=== PATIENT | female | born 1940 | race Caucasian/White ===

== ENCOUNTER → 2018-04-11 | Outpatient (CLI) | payer MEDICARE | END | disposition home or self-care (01) | LOC: RAD 15:52 | DX: J98.4 Other disorders of lung (principal); I10 Essential (primary) hypertension; M54.9 Dorsalgia, unspecified; Z87.891 Personal history of nicotine dependence ==

== ENCOUNTER 2018-04-23 16:34 | Emergency (ER) | payer MEDICARE ==
[~2018-04-23] VITALS: Ht 152.4 cm; Wt 57.6 kg
--- NOTE | ~2018-04-23 | EKG ---
[place], [place] ELECTROCARDIOGRAM REPORT NAME: RHETT FRANCO UNIT #: [id number] ROOM: DOCTOR: MONSE DRAFT REPORT BIRTHDATE: [birth year] [facility] Test Date: 2018-04-23 Test Time: 17:47:29 Pat Name: RHETT FRANCO Department: Room: Gender: F Rippler: : 1940 Requested By: HANY RUFF Order Number: [id number] Reading MD: Kal Marie MD Measurements Intervals [place] Rate: 102 P: 54 [place]: 158 QRS: 33 QRSD: 86 T: 33 QT: 345 QTc: 450 Interpretive Statements Sinus tachycardia Ventricular premature complex Electronically Signed On 04-24-2018 6:46:13 PST by Kal Marie MD CM:EKGRPT:ELECTROCARDIOGRAM REPORT [id number] HANY HAJI DRAFT REPORT HANY RUFF DO
[2018-04-23 17:41] LABS: HEMATOCRIT 41.8 % (37.0-47.0); HEMOGLOBIN 13.9 g/dl (12.0-16.0); MEAN CELL VOLUME 87.8 fl (81.0-99.0); MEAN CORPUSCULAR HGB 29.2 pg (27.0-31.0); MEAN CORPUSCULAR HGB CONC 33.3 g/dl (33.0-37.0); MEAN PLATELET VOLUME 9.3 fl (9.6-12.3); PLATELET COUNT AUTOMATED 285 10*3/uL (130-400); RED BLOOD COUNT 4.76 10*6/uL (4.10-5.10); RED CELL DISTRI WIDTH 12.3 % (0-14.5)
[2018-04-23 18:00] LABS: ALBUMIN 3.9 gm/dl (3.1-4.5); ALKALINE PHOSPHATASE 80 U/L (45-117); BUN 14 mg/dl (7-24); CHLORIDE 106 mmol/L (98-107); CREATININE 0.76 mg/dL (0.55-1.02); LIPASE 160 U/L (73-393); POTASSIUM 3.8 mmol/L (3.5-5.1); SGOT/AST 15 IU/L (3-35); SGPT/ALT 27 U/L (12-78); SODIUM 139 mmol/L (136-145); TOTAL PROTEIN 7.6 gm/dL (6.4-8.2)
[2018-04-23 18:01] LABS: ACT PARTIAL THROMBO TIME 26.1 SECONDS (20.8-31.5); INTERNATIONAL NORM RATIO 1.1 (2.0-3.5); TROPONIN I < 0.015 ng/ml (<0.045)
[2018-04-23 18:08] LABS: PLATELET SUFFICIENCY NORMAL (NORMAL); TOTAL CELLS COUNTED 100 #CELLS
[2018-04-23] MEDS ORDERED: DOXYCYCLINE100 M3 PO (18:50)
== END 2018-04-23 18:54 | disposition home or self-care (01) ==
LOC: ED 16:34
PROVIDERS: Emergency Medicine
DX: J20.9 Acute bronchitis, unspecified (principal); R79.1 Abnormal coagulation profile; Z91.040 Latex allergy status

== ENCOUNTER → 2020-05-26 | Outpatient (CLI) | payer MEDICARE ==
[~2020-05-26] MED LIST: DOXYCYCLINE100 M3 PO
== END | disposition home or self-care (01) ==
LOC: RAD 12:52
PROVIDERS: ATTEND Internal Medicine
DX: J44.9 Chronic obstructive pulmonary disease, unspecified (principal); R91.8 Other nonspecific abnormal finding of lung field; R05 Cough; M85.88 Other specified disorders of bone density and structure, other site

== ENCOUNTER 2020-12-04 14:59 | Inpatient (IN) | payer MEDICARE ==
[~2020-12-04] VITALS: Ht 152.4 cm; Wt 57.0 kg
[2020-12-04] VITALS (22 sets, daily range): BP systolic 94–147; BP diastolic 45–75
[2020-12-04 15:26] LABS: HEMATOCRIT 36.6 % (37.0-47.0); MEAN CELL VOLUME 85.1 fl (81.0-99.0); MEAN CORPUSCULAR HGB 27.4 pg (27.0-31.0); MEAN CORPUSCULAR HGB CONC 32.2 g/dl (33.0-37.0); PLATELET COUNT AUTOMATED 352 10*3/uL (130-400); RED CELL DISTRI WIDTH 13.3 % (0-14.5); WHITE BLOOD COUNT 15.4 10*3/uL (4.8-10.8)
[2020-12-04 15:42] LABS: BASOPHILS 1 % (0-1); TOTAL CELLS COUNTED 100 #CELLS
[2020-12-04 15:43] LABS: BURR CELLS FEW; PLATELET SUFFICIENCY NORMAL (NORMAL)
[2020-12-04 15:45] LABS: ALBUMIN 2.8 gm/dl (3.1-4.5); ALKALINE PHOSPHATASE 65 U/L (45-117); BUN 18 mg/dl (7-24); CHLORIDE 102 mmol/L (98-107); CREATININE 0.87 mg/dL (0.55-1.02); POTASSIUM 3.6 mmol/L (3.5-5.1); SGOT/AST 11 IU/L (3-35); SGPT/ALT 18 U/L (12-78); SODIUM 133 mmol/L (136-145); TOTAL PROTEIN 6.7 gm/dL (6.4-8.2)
[2020-12-04 15:48] LABS: TROPONIN I < 0.015 ng/ml (<0.045)
[2020-12-04 19:12] LABS: BILIRUBIN Negative (Negative); BLOOD 3+ (Negative); CLARITY Cloudy (Clear); COLOR Yellow (Yellow); GLUCOSE Negative (Negative); KETONE Negative (Negative); LEUKO ESTERASE 2+ (Negative); NITRITE Positive (Negative)
[2020-12-04] MEDS ORDERED: LISINOPRIL10 M1 PO (19:24)
[2020-12-04] MEDS ORDERED: ALPRAZOLAM0.25 M2 PO (19:24)
[2020-12-04] MEDS ORDERED: OMEPRAZOLE MAGN20 MG PO (19:25)
[2020-12-04] MEDS ORDERED: VITAMIN D325 MC1 PO (19:26)
[2020-12-04 19:28] LABS: BACTERIA 4+; COARSE GRANULAR CAST 0-2; WBC 21-30 wbc/hpf (0-5)
[2020-12-05] VITALS (17 sets, daily range): BP systolic 100–135; BP diastolic 43–68
[2020-12-05 05:17] LABS: ALBUMIN 2.5 gm/dl (3.1-4.5); ALKALINE PHOSPHATASE 57 U/L (45-117); BUN 19 mg/dl (7-24); CHLORIDE 107 mmol/L (98-107); CHOLESTEROL 142 mg/dL (<200); CREATININE 0.63 mg/dL (0.55-1.02); FREE T4 1.38 ng/dl (0.76-1.46); LDL CHOLESTEROL 85 mg/dL (9-159); POTASSIUM 3.9 mmol/L (3.5-5.1); SGOT/AST 12 IU/L (3-35); SGPT/ALT 15 U/L (12-78); SODIUM 138 mmol/L (136-145); TRIGLYCERIDES 81 mg/dl (<150)
[2020-12-05 06:36] LABS: BASO # 0.1 10*3/uL (0.0-0.1); BASO % 0.5 % (0.0-1.0); EOS # 0.5 10*3/uL (0.0-0.4); EOS % 3.9 % (1.0-4.0); HEMATOCRIT 34.8 % (37.0-47.0); LYMPH # 1.3 10*3/uL (1.3-4.4); LYMPH % 10.2 % (27.0-41.0); MEAN CELL VOLUME 87.7 fl (81.0-99.0); MEAN CORPUSCULAR HGB 27.7 pg (27.0-31.0); MEAN CORPUSCULAR HGB CONC 31.6 g/dl (33.0-37.0); MEAN PLATELET VOLUME 9.7 fl (9.6-12.3); MONO # 1.3 10*3/uL (0.1-1.0); MONO % 10.3 % (3.0-9.0); NEUT # 9.2 10*3/uL (2.3-7.9); NEUT % 74.6 % (47.0-73.0); PLATELET COUNT AUTOMATED 307 10*3/uL (130-400); RED BLOOD COUNT 3.97 10*6/uL (4.10-5.10); RED CELL DISTRI WIDTH 13.4 % (0-14.5); WHITE BLOOD COUNT 12.4 10*3/uL (4.8-10.8)
[2020-12-06] VITALS: BP 122/60
[2020-12-06 06:25] LABS: BASO # 0.1 10*3/uL (0.0-0.1); BASO % 0.6 % (0.0-1.0); EOS # 0.6 10*3/uL (0.0-0.4); EOS % 5.1 % (1.0-4.0); HEMATOCRIT 36.7 % (37.0-47.0); LYMPH # 1.5 10*3/uL (1.3-4.4); LYMPH % 13.3 % (27.0-41.0); MEAN CELL VOLUME 85.9 fl (81.0-99.0); MEAN CORPUSCULAR HGB 28.1 pg (27.0-31.0); MEAN CORPUSCULAR HGB CONC 32.7 g/dl (33.0-37.0); MEAN PLATELET VOLUME 9.4 fl (9.6-12.3); MONO # 0.9 10*3/uL (0.1-1.0); MONO % 8.6 % (3.0-9.0); NEUT # 7.9 10*3/uL (2.3-7.9); NEUT % 71.9 % (47.0-73.0); PLATELET COUNT AUTOMATED 358 10*3/uL (130-400); RED BLOOD COUNT 4.27 10*6/uL (4.10-5.10); RED CELL DISTRI WIDTH 13.2 % (0-14.5); WHITE BLOOD COUNT 10.9 10*3/uL (4.8-10.8)
[2020-12-06 06:36] LABS: BUN 17 mg/dl (7-24); CHLORIDE 107 mmol/L (98-107); CREATININE 0.73 mg/dL (0.55-1.02); POTASSIUM 4.2 mmol/L (3.5-5.1); SODIUM 136 mmol/L (136-145)
[2020-12-06 08:00] VITALS: BP 130/64; BP 136/68
[2020-12-06 12:00] VITALS: BP 111/91
[2020-12-06] MEDS ORDERED: METOPROLOL SUCC25 M2 PO (15:22)
[2020-12-06] MEDS ORDERED: XARELTO20 M1 PO (15:26)
[2020-12-06 16:00] VITALS: BP 140/65
== END 2020-12-06 17:56 | disposition home or self-care (01) | DRG 872 ==
LOC: ED 14:59 → EDHOLD 16:36 → 4E 12-05 10:50
PROVIDERS: Internal Medicine; ADMIT Internal Medicine; ATTEND Internal Medicine
DX: A41.9 Sepsis, unspecified organism (principal); E87.1 Hypo-osmolality and hyponatremia; N39.0 Urinary tract infection, site not specified; J84.9 Interstitial pulmonary disease, unspecified; E44.0 Moderate protein-calorie malnutrition; I48.91 Unspecified atrial fibrillation; R65.20 Severe sepsis without septic shock; F41.9 Anxiety disorder, unspecified; K21.9 Gastro-esophageal reflux disease without esophagitis; I10 Essential (primary) hypertension; G43.909 Migraine, unspecified, not intractable, without status migrainosus; E83.41 Hypermagnesemia; D64.9 Anemia, unspecified; R73.9 Hyperglycemia, unspecified; Z87.891 Personal history of nicotine dependence; Z88.8 Allergy status to other drugs, medicaments and biological substances; Z82.49 Family history of ischemic heart disease and other diseases of the circulatory system; Z91.09 Other allergy status, other than to drugs and biological substances; Z79.899 Other long term (current) drug therapy; Z68.24 Body mass index [BMI] 24.0-24.9, adult